=== PATIENT | male | born 1990 | race Caucasian/White ===

== ENCOUNTER 2017-05-20 18:55 | Inpatient (IN) | payer MEDICAID ==
[2017-05-20] MEDS ORDERED: NS 1,000 ML IV ONE ×2 (19:28)
--- NOTE | 2017-05-20 19:28 | EDPHY ---
H & P Stated Complaint: BLOODY DIARRHEA/HX OF [place] AND JUST RETURNED FROM [place] Source: Patient, Family (Mother) Exam Limitations: No limitations - Personal History Current Tetanus/Diphtheria Vaccine: Yes - Medical/Surgical History Hx Asthma: No Hx Chronic Respiratory Disease: No Hx Diabetes: No Hx Cardiac Disease: No Hx Renal Disease: No Hx Cirrhosis: No Hx Alcoholism: No Hx HIV/AIDS: No Hx Splenectomy or Spleen Trauma: No Other PMH: Crohns - Social History Smoking Status: Former smoker Time Seen by Provider: 05/20/17 19:27 HPI/ROS: HPI: This is a 27-year-old male presents with Chief Complaint: BLOODY DIARRHEA/HX OF [place] AND JUST RETURNED FROM [place] Location: GI Quality: bloody Diarrhea Duration: Since May 12 Signs and Symptoms: + fever, + chills, no nausea, no vomiting, no hematemesis, + blood in stool, + abdominal bloating, + diarrhea, no back pain, no urinary symptoms, no testicular/groin pain, no indigestion, no chest pain, no shortness of breath Timing: Sudden, intermittent episodes Severity: Moderate to severe Context: History of Crohn's disease on Humira injection at the end of April , left from [place] on May 12 and return today. He complains that he had 4- 5 bloody stools per day starting on the accompanied by abdominal bloating, dominant cramping and abdominal pain. For the last 2 days, he has only had small "dribbles" of dark stool that is blood tinged. He has been attempting to drink fluids but everything he eats "runs right through him." His last colonoscopy was approximately 1 year ago. He is followed by Gastroenterology and [place], [place]. He denies any urinary symptoms but does endorse low- grade fever, fatigue and chills. Denies perirectal abscess. Modifying Factors: Humira Comment: ROS: see HPI Constitutional: No fever, no chills, no weight loss Eyes: No blurred vision Respiratory: No shortness of breath, no cough Cardiovascular: No chest pain, no palpitations Gastrointestinal: No nausea, no vomiting, + diarrhea, no hematemesis, + blood in stool Genitourinary: No dysuria, no blood in urine Extremities: No myalgias, no edema Neurologic: No weakness, no numbness Skin: No rashes, no petechiae Hematologic: No bruising, no bleeding MEDICAL/SURGICAL/SOCIAL HISTORY: Medical history: Crohn's disease Surgical history: Rectal scope for kinza anal abscess Social history: Employed. CONSTITUTIONAL: Pleasant adult white male who is reddened flushed cheeks appears ill but nontoxic in appearance, awake and alert, no obvious distress HEENT: Atraumatic and normocephalic, PERRL, EOMI. Tympanic membranes clear. Oropharynx clear, no exudate and moist pink mucosa. Airway patent. No lymphadenopathy. No meningismus. Cardiovascular: Normal S1/S2, tachycardia, regular rhythm, without murmur rub or gallop. PULMONARY/CHEST: Symmetrical and nontender. Clear to auscultation bilaterally. Good air movement. No accessory muscle usage. ABDOMEN: Soft, nondistended, mild nonfocal generalized tenderness, no rebound, no guarding, no peritoneal signs, no masses or organomegaly. No CVAT. EXTREMITIES: 2/2 pulses, strength 5/5, no deformities, no clubbing, no cyanosis or edema. NEUROLOGICAL: no focal neuro deficits. GCS 15. SKIN: Warm and dry, no erythema. no rash. Good capillary refill. (Chloe Hanson) Constitutional: Initial Vital Signs Temperature (C) 37.7 C 05/20/17 18:57 Heart Rate 128 H 05/20/17 18:57 Respiratory Rate 20 05/20/17 18:57 Blood Pressure 130/78 H 05/20/17 18:57 O2 Sat (%) 95 05/20/17 18:57 O2 Delivery Mode Room Air Allergies/Adverse Reactions: hydromorphone [From Dilaudid] Allergy (Mild, Verified 05/20/17 20:22) Itching Home Medications: Medication Instructions Recorded Acetaminophen [Tylenol ES 500 mg 500 mg PO Q6 PRN 05/20/17 (*)] Adalimumab [Humira] 40 mg SQ Q14D 05/20/17 Medical Decision Making - Diagnostics Imaging Results: Imaging Impressions Abdomen CT 05/20/17 19:41 Impression: 1. Crohn's colitis involving the transverse, descending, and sigmoid colon, with circumferential wall thickening and pericolonic inflammatory changes. 2. No evidence of abscess, bowel obstruction, or pneumoperitoneum. 3. L5-S1 spondylolytic grade 1 spondylolisthesis resulting in bilateral neural foraminal stenosis. Findings and recommendations given to Chloe Hanson PA-C, at 2045 hours, on May 20, 2017. Final report concurs with initial preliminary interpretation. ED Course/Re-evaluation: The patient was evaluated and managed by the physician's legal executive assistant. My cosignature indicates that I reviewed the chart and I agree with the findings and plan of care as documented. I am the secondary supervising physician. ( Radha Lundberg) Labs, urinalysis, CT abdomen and pelvis scan, IV fluids, stool studies, occult stool, IV medications ordered Vital signs reviewed and show tachycardia upon arrival. Patient given 2 L normal saline, IV morphine 4 mg, and IV Solu-Medrol 125 mg No signs of small-bowel obstruction, perforation, toxic megacolon Called by Radiologist, Dr. Lee Meeks, who advised that CT abdomen and pelvis scan shows no signs of perforation/obstruction/toxic megacolon but does show diffuse inflammatory changes throughout the distal transverse into the descending colon. No abscess. 2044: Reassessed patient; who reports that he is feeling much better at with last abdominal cramping and minimal abdominal pain. 2049: ED decision to consult for admission for Crohn's flare with leukocytosis and increased inflammatory markers. Spoke with hospitalist, Dr. Colbert, (Chloe Hanson) Differential Diagnosis: Abdominal pain including but not limited to Crohn's flare, appendicitis, cholecystitis, gastritis and urinary tract infection. (Chloe Hanson) - Data Points Laboratory Results: Laboratory Results 05/20/17 19:35 05/20/17 19:35 05/20/17 05/20/17 05/20/17 19:35 19:35 19:35 WBC 16.31 10^3/uL H 10^3/uL (3.80-9.50) RBC 4.25 10^6/uL L 10^6/uL (4.40-6.38) Hgb 12.1 g/dL L g/dL (13.7-17.5) Hct 35.5 % L % (40.0-51.0) MCV 83.5 fL fL (81.5-99.8) MCH 28.5 pg pg (27.9-34.1) MCHC 34.1 g/dL g/dL (32.4-36.7) RDW 13.5 % % (11.5-15.2) Plt Count 370 10^3/uL 10^3/uL (150-400) MPV 9.7 fL fL (8.7-11.7) Neut % (Auto) 86.1 % H % (39.3-74.2) Lymph % (Auto) 5.6 % L % (15.0-45.0) Daniels % (Auto) 7.8 % % (4.5-13.0) Eos % (Auto) 0.1 % L % (0.6-7.6) Baso % (Auto) 0.2 % L % (0.3-1.7) Nucleat RBC Rel Count 0.0 % % (0.0-0.2) Absolute Neuts (auto) 14.05 10^3/uL H 10^3/uL (1.70-6.50) Absolute Lymphs (auto) 0.91 10^3/uL L 10^3/uL (1.00-3.00) Absolute Monos (auto) 1.27 10^3/uL H 10^3/uL (0.30-0.80) Absolute Eos (auto) 0.01 10^3/uL L 10^3/uL (0.03-0.40) Absolute Basos (auto) 0.03 10^3/uL 10^3/uL (0.02-0.10) Absolute Nucleated RBC 0.00 10^3/uL 10^3/uL (0-0.01) Immature Gran % 0.2 % % (0.0-1.1) Immature Gran # 0.04 10^3/uL 10^3/uL (0.00-0.10) ESR 62 MM/HR H MM/HR (0-15) VBG Lactic Acid 2.0 mmol/L mmol/L (0.7-2.1) Sodium 137 mEq/L mEq/L (134-144) Potassium 3.8 mEq/L mEq/L (3.5-5.2) Chloride 97 mEq/L mEq/L (97-110) Carbon Dioxide 23 mEq/l mEq/l (22-31) Anion Gap 17 mEq/L H mEq/L (8-16) BUN 7 mg/dL mg/dL (7-23) Creatinine 0.8 mg/dL mg/dL (0.7-1.3) Estimated GFR > 60 Glucose 135 mg/dL H mg/dL (70-100) Calcium 9.5 mg/dL mg/dL (8.5-10.4) Total Bilirubin 0.6 mg/dL mg/dL (0.1-1.4) Conjugated Bilirubin 0.3 mg/dL mg/dL (0.0-0.5) Unconjugated Bilirubin 0.3 mg/dL mg/dL (0.0-1.1) AST 25 IU/L IU/L (17-59) ALT 43 IU/L IU/L (21-72) Alkaline Phosphatase 84 IU/L IU/L (38-126) C-Reactive Protein 241.6 mg/L H mg/L (<10.0) Total Protein 6.6 g/dL g/dL (6.3-8.2) Albumin 3.6 g/dL g/dL (3.5-5.0) Lipase 19 IU/L L IU/L (23-300) Medications Given: Discontinued Medications Sodium Chloride (Ns) 1,000 mls @ 0 mls/hr IV EDNOW ONE; Wide Open PRN Reason: Protocol Stop: 05/20/17 19:29 Last Admin: 05/20/17 19:44 Dose: 1,000 mls Sodium Chloride (Ns) 1,000 mls @ 0 mls/hr IV EDNOW ONE; Wide Open PRN Reason: Protocol Stop: 05/20/17 19:29 Last Admin: 05/20/17 19:44 Dose: 1,000 mls Methylprednisolone Sodium Succinate (Solu-Medrol) 125 mg IVP EDNOW ONE Stop: 05/20/17 19:41 Last Admin: 05/20/17 19:46 Dose: 125 mg Morphine Sulfate (Morphine) 4 mg IVP EDNOW ONE Stop: 05/20/17 19:41 Last Admin: 05/20/17 19:44 Dose: 4 mg Morphine Sulfate (Morphine) 4 mg IVP EDNOW ONE Stop: 05/20/17 21:51 Last Admin: 05/20/17 21:52 Dose: 4 mg Departure - Departure Disposition: [facility] Acute Clinical Impression: Crohn's disease, acute Qualifiers: Digestive disease complication type: unspecified complication Qualified Code(s) : K50.919 - Crohn's disease, unspecified, with unspecified complications Crohn's colitis Qualifiers: Digestive disease complication type: unspecified complication Qualified Code(s) : K50.119 - Crohn's disease of large intestine with unspecified complications Condition: Fair
[2017-05-20] MEDS ORDERED: methylPREDNISolone SOD SUCC 125 MG/2 ML VIAL IVP ONE (19:40)
[2017-05-20 19:50] LABS: PLATELET COUNT 370 10^3/uL (150-400)
[2017-05-20] MEDS ORDERED: IOPAMIDOL (ISOVUE-300) 100 ML BTL ONE (20:25)
[2017-05-20] MEDS ORDERED: PROMETHAZINE HCL 25 MG/ML INJ IVP PRN (22:18)
[2017-05-20] MEDS ORDERED: ONDANSETRON 4 MG/2 ML VIAL IVP PRN (22:18)
[2017-05-20] MEDS ORDERED: ACETAMINOPHEN 325 MG TAB PO PRN (22:18)
[2017-05-20] MEDS ORDERED: NS 1,000 ML IV SCH (22:45)
--- NOTE | 2017-05-20 23:04 | PDGENHP ---
History and Physical - Chief Complaint bloody diarrhea - History of Present Illness Source-patient provides history appears reliable. Case discussed with the accepting provider and EMR reviewed. HPI-this is a pleasant 27-year-old male with past medical history significant for Crohn's disease who presents to the emergency department with complaints of approximately 2 weeks of progressive lower abdominal pain. Patient is on Humira and received his last dose on 05/12/2017. Patient subsequently went on vacation to [place] where he continued to feel worse. He also developed fevers and chills fatigue sweats and worsening abdominal distention. The patient also endorses blood streaked diarrhea. He denies any sick contacts. Patient describes his pain as alternating sharp and cramping type pain in his bilateral lower abdomen abdomen. He has had decreased appetite and poor oral intake and hydration for the last several days. Currently patient reports that he has not had anything solid to eat and sometime in is now just passing mucousy blood. Patient also endorses some nausea and vomiting without hematemesis. He has been feeling progressively weak and occasional lightheadedness. He and his family arrived into the [place] airport this afternoon and immediately patient desired to be brought to the emergency department for evaluation. Patient lives in [place] and followed by GI locally there. His parents live in the [place] area and patient requested the bring him immediately to [facility] after landing from the airport. Patient denies any chest pain shortness of breath presyncope. History Information - Allergies/Home Medication List Allergies/Adverse Reactions: hydromorphone [From Dilaudid] Allergy (Mild, Verified 05/20/17 20:22) Itching Home Medications: Acetaminophen [Tylenol ES 500 mg (*)] 500 mg PO Q6 PRN 05/20/17 [Last Taken 09/01 12:00] Adalimumab [Humira] 40 mg SQ Q14D 05/20/17 [Last Taken 05/12/17] I have personally reviewed and updated: family history, medical history, social history, surgical history - Past Medical History Additional medical history: Crohn's disease, attention deficit hyperactivity disorder, anxiety and depression - Surgical History Additional surgical history: Colonoscopy, ? EGD, perirectal abscess I and D - Family History Additional family history: Negative for IBD or any other autoimmune conditions. Patient reports his mother, father, sister are all healthy - Social History Smoking Status: Former smoker Tobacco Use: Cigarettes Alcohol Use: Rarely Drug Use: Marijuana Additional social history: Patient lives and works in [place]. He quit smoking in 2015 shortly after diagnosis of Crohn's with occasional cigarette. He rarely drinks any alcohol. He uses marijuana on most days. Cor status - full. Review of Systems Review of Systems: ROS: 10pt was reviewed & negative except for what was stated in HPI & below Constitutional: Reports: chills, fever, malaise, recent illness EENMT: Reports: nose congestion (Some rhinorrhea earlier today that is now resolved). Denies: blurred vision, sore throat Cardiac: Reports: no symptoms. Denies: chest pain, edema, lightheadedness, palpitations Respiratory: Reports: no symptoms. Denies: cough, shortness of breath Gastrointestinal: Reports: vomitting, blood streaked stools, diarrhea, nausea, other (See HPI) Genitourinary: Reports: no symptoms. Denies: dysuria, hematuria Muscolosketal: Reports: muscle pain (Diffuse myalgias) Skin: Reports: other (Ingrown hair to the thigh). Denies: rash Neurological: Denies: anxiety, depressed, headache, numbness, tingling Hematologic/Lymphatic: Denies: easy bleeding, easy bruising Physical Exam Physical Exam: Selected Entries 05/20/17 05/20/17 18:57 21:54 Blood Pressure Automatic Automatic Method Heart Rate 128 H 92 Respiratory 20 14 Rate O2 Sat (%) 95 92 Temperature (C) 37.7 C Blood Pressure 130/78 H 117/77 Mean Arterial 95 90 Pressure (MAP) O2 Delivery Room Air Room Air Mode Temperature Oral Source Temp Pulse Resp BP Pulse Ox 36.4 C 94 14 129/73 H 94 05/20/17 22:36 05/20/17 22:36 05/20/17 22:36 05/20/17 22:36 05/20/17 22:36 Constitutional: no apparent distress, chronically ill appearing, uncomfortable, other (NAD. Pleasant young adult male is sitting quietly in bed. Appears fatigued acutely ill but nontoxic.) Eyes: PERRL, anicteric sclera, EOMI, No scleral injection Ears, Nose, Mouth, Throat: dry mucous membranes, other (No nasal discharge), No poor dentition Cardiovascular: no murmur, rub, or gallop (the 90s), pulses symmetric bilaterally, tachycardia, edema (Trace lower extremities bilaterally), other ( Regular rhythm), No systolic murmur Peripheral Pulses: 2+: dorsalis-pedis (R), dorsalis-pedis (L) Respiratory: no respiratory distress, no rales or rhonchi, clear to auscultation Gastrointestinal: normoactive bowel sounds, no palpable masses, tenderness ( Bilateral lower abdomen, distended, increased warmth to touch in the lower abdomen), distension, No guarding, No rebound Genitourinary: no bladder tenderness, No hunt in urethra Skin: warm, other ([place]), No rash Musculoskeletal: full muscle strength, other (Patient sits up independently), No joint tenderness Neurologic: AAOx3, sensation intact bilaterally, other (Grossly nonfocal), No weakness, No facial droop Psychiatric: interacting appropriately, not anxious, not encephalopathic, thought process linear Lab Data & Imaging Review 05/20/17 19:35 05/20/17 19:35 WBC 16.31 10^3/uL (3.80-9.50) H 05/20/17 19:35 RBC 4.25 10^6/uL (4.40-6.38) L 05/20/17 19:35 Hgb 12.1 g/dL (13.7-17.5) L 05/20/17 19:35 Hct 35.5 % (40.0-51.0) L 05/20/17 19:35 MCV 83.5 fL (81.5-99.8) 05/20/17 19:35 MCH 28.5 pg (27.9-34.1) 05/20/17 19:35 MCHC 34.1 g/dL (32.4-36.7) 05/20/17 19:35 RDW 13.5 % (11.5-15.2) 05/20/17 19:35 Plt Count 370 10^3/uL (150-400) 05/20/17 19:35 MPV 9.7 fL (8.7-11.7) 05/20/17 19:35 Neut % (Auto) 86.1 % (39.3-74.2) H 05/20/17 19:35 Lymph % (Auto) 5.6 % (15.0-45.0) L 05/20/17 19:35 [place] % (Auto) 7.8 % (4.5-13.0) 05/20/17 19:35 Eos % (Auto) 0.1 % (0.6-7.6) L 05/20/17 19:35 Baso % (Auto) 0.2 % (0.3-1.7) L 05/20/17 19:35 Nucleat RBC Rel Count 0.0 % (0.0-0.2) 05/20/17 19:35 Absolute Neuts (auto) 14.05 10^3/uL (1.70-6.50) H 05/20/17 19:35 Absolute Lymphs (auto) 0.91 10^3/uL (1.00-3.00) L 05/20/17 19:35 Absolute Monos (auto) 1.27 10^3/uL (0.30-0.80) H 05/20/17 19:35 Absolute Eos (auto) 0.01 10^3/uL (0.03-0.40) L 05/20/17 19:35 Absolute Basos (auto) 0.03 10^3/uL (0.02-0.10) 05/20/17 19:35 Absolute Nucleated RBC 0.00 10^3/uL (0-0.01) 05/20/17 19:35 Immature Gran % 0.2 % (0.0-1.1) 05/20/17 19:35 Immature Gran # 0.04 10^3/uL (0.00-0.10) 05/20/17 19:35 ESR 62 MM/HR (0-15) H 05/20/17 19:35 VBG Lactic Acid 2.0 mmol/L (0.7-2.1) 05/20/17 19:35 Sodium 137 mEq/L (134-144) 05/20/17 19:35 Potassium 3.8 mEq/L (3.5-5.2) 05/20/17 19:35 Chloride 97 mEq/L (97-110) 05/20/17 19:35 Carbon Dioxide 23 mEq/l (22-31) 05/20/17 19:35 Anion Gap 17 mEq/L (8-16) H 05/20/17 19:35 BUN 7 mg/dL (7-23) 05/20/17 19:35 Creatinine 0.8 mg/dL (0.7-1.3) 05/20/17 19:35 Estimated GFR > 60 05/20/17 19:35 Glucose 135 mg/dL (70-100) H 05/20/17 19:35 Calcium 9.5 mg/dL (8.5-10.4) 05/20/17 19:35 Total Bilirubin 0.6 mg/dL (0.1-1.4) 05/20/17 19:35 Conjugated Bilirubin 0.3 mg/dL (0.0-0.5) 05/20/17 19:35 Unconjugated Bilirubin 0.3 mg/dL (0.0-1.1) 05/20/17 19:35 AST 25 IU/L (17-59) 05/20/17 19:35 ALT 43 IU/L (21-72) 05/20/17 19:35 Alkaline Phosphatase 84 IU/L (38-126) 05/20/17 19:35 C-Reactive Protein 241.6 mg/L (<10.0) H 05/20/17 19:35 Total Protein 6.6 g/dL (6.3-8.2) 05/20/17 19:35 Albumin 3.6 g/dL (3.5-5.0) 05/20/17 19:35 Lipase 19 IU/L (23-300) L 05/20/17 19:35 Imaging Review: CT Scan of the Abdomen and Pelvis (With Contrast) at 2030 hours History: Crohn's disease, abdominal pain, bloody diarrhea, leukocytosis. Technique: Axial computed tomographic images of the abdomen and pelvis were obtained with the uneventful intravenous administration of 90 mL Isovue-300 contrast. No oral contrast. Dose reduction techniques were utilized. Comparison: CT April 2015. CT Abdomen Findings: Lung bases: Normal. Liver: Normal. Biliary System: No biliary ductal dilation. Spleen: Normal. Pancreas: Normal. Adrenals: Normal. Kidneys: No obstruction or solid masses. Abdominal Aorta: No aneurysm. Diffuse circumferential wall thickening, with pericolonic inflammatory changes involving the majority of the transverse colon, descending colon, and sigmoid colon, which has progressed and appears worse since the previous study consistent with acute Crohn's colitis. No drainable abscess or pneumoperitoneum. No definite bowel obstruction. No significant adenopathy. Oral contrast in the right colon only. CT Pelvis Findings: Diffuse circumferential wall thickening of the descending and sigmoid colon also noted consistent with Crohn's colitis. No drainable abscess. Bilateral L5 spondylolysis and grade 1 spondylolisthesis resulting in moderate bilateral neural foraminal stenosis, without central canal stenosis. Impression: 1. Crohn's colitis involving the transverse, descending, and sigmoid colon, with circumferential wall thickening and pericolonic inflammatory changes. 2. No evidence of abscess, bowel obstruction, or pneumoperitoneum. 3. L5-S1 spondylolytic grade 1 spondylolisthesis resulting in bilateral neural foraminal stenosis. Findings and recommendations given to Chloe Hanson PA-C, at 2045 hours, on May 20, 2017. Visualized and Interpreted imaging results: Yes Assessment & Plan Assessment: 27-year-old male with Crohn's disease on immunosuppressive therapy presents with worsening abdominal pain and bloody diarrhea #Crohn's colitis (Acute) - the patient is currently undergoing treatment with Humira is immunosuppressed. He did received 125 mg dose of Solu-Medrol. Will add on Flagyl and ciprofloxacin given increased colitis and surrounding stranding. Patient meeting SIRS criteria but his qsofa score is 0. He will receive IV fluids, continued steroids and antibiotics. GI consultation in the morning for any further recommendations. Additionally given patient was recently in [place] have added on stool studies to evaluate for any virulent infectious agents. #Abdominal pain - p.r.n. morphine, Ativan, [place] #SIRS - patient with leukocytosis, tachycardia. His Q sulfa score however is 0 however. Lactate was 2.0 will repeat to ensure it has come down after fluids. #anemia - unclear if this is acute versus chronic. secondary to Crohn's GI losses. Will continue to monitor. Vitals are stable at this time FEN - IVF. electrolyte replacement if needed. clear diet for now. PPX - SCDs. holding anticoagulation in setting of GI bleeding. COR - FULL. Dispo - the patient admitted to inpatient status given severity of disease and patient's history of immunosuppression. Anticipate greater than 2 midnight stay for continued IV antibiotics and monitoring.
[2017-05-20] MEDS: CIPROFLOXACIN 400 MG/DEXTROSE 200 ML IV SCH (23:36)
[2017-05-20] MEDS: HYDROCODONE/APAP 5/325 TAB PO PRN (23:41)
[2017-05-21] MEDS: HYDROCODONE/APAP 5/325 TAB PO PRN ×2 (05:06→09:39)
[2017-05-21 05:53] LABS: PLATELET COUNT 324 10^3/uL (150-400)
[2017-05-21] MEDS: LORazepam 2 MG/ML INJ IVP PRN ×2 (08:30→22:20)
--- NOTE | 2017-05-21 09:07 | HOSPPROG ---
Hospitalist Progress Note Assessment/Plan: #SIRs: resolved #Crohn's flare -involving transcending/descending/sigmoid colon -GI PCR negative, O&P pending with recent [place] trip -resume IV steroids, cont abx for now -consult GI #Tachycardia: resolved with IVFs #Normocytic anemia: unclear baseline. #Leukocytosis: improved with IVFs, cont abx #Diet: clear #DVT ppx: low-risk #Disp: warrants inpt admission with Crohn's flare, requires IV steroids Subjective: still having bloody, mucus stools. Crampy lower abd pain Objective: Vital Signs Temp Pulse Resp BP Pulse Ox 36.5 C 67 17 112/64 94 05/21/17 07:25 05/21/17 07:25 05/21/17 07:25 05/21/17 07:25 05/21/17 07:25 Microbiology 05/21/17 01:00 Gastrointestinal Tract Panel (PCR) - Final Stool No Organism Detected 05/21/17 01:00 Fecal Leukocyte Stain - Final Stool Laboratory Results 05/21/17 05:21 05/21/17 05:21 05/20/17 05/21/17 05/22/17 05:59 05:59 05:59 Intake Total 2500 900 Output Total 350 Balance 2150 900 - Physical Exam Constitutional: no apparent distress Eyes: PERRL Ears, Nose, Mouth, Throat: moist mucous membranes, hearing normal Cardiovascular: regular rate and rhythym, no murmur, rub, or gallop Respiratory: no respiratory distress, no rales or rhonchi Gastrointestinal: normoactive bowel sounds, other (mild distension. mild lower abd TTP, no rebound/guard) Genitourinary: no bladder fullness Skin: warm Musculoskeletal: full muscle strength Neurologic: AAOx3 Psychiatric: interacting appropriately Lymph, Heme, Immunologic: no cervical LAD ICD10 Worksheet Patient Problems: Problems Problem Status Onset Crohn's colitis Acute Crohn's disease, acute Acute Colitis Acute Perirectal abscess Acute
[2017-05-21] MEDS: CIPROFLOXACIN 400 MG/DEXTROSE 200 ML IV SCH ×2 (09:35→20:52)
[2017-05-21] MEDS ORDERED: ACETAMINOPHEN 500 MG TAB PO PRN (10:42)
[2017-05-21] MEDS ORDERED: diphenhydrAMINE 25 MG CAP PO PRN (10:44)
--- NOTE | 2017-05-21 11:30 | PDMN ---
Medical Necessity Medical necessity: est los>2mn for acute Crohn's colitis, abd pain, SIRS, and anemia; admit for IVF, IV steroids, IV abx, and GI consult; comorbid immunosuppression; per order and H&P 05/20/17
[2017-05-21] MEDS: oxyCODONE IR 5 MG TAB PO PRN ×6 (12:00→22:19)
[2017-05-21] MEDS: methylPREDNISolone SOD SUCC 40 MG/ML VIAL IVP SCH ×3 (12:00→20:52)
[2017-05-21] MEDS: ONDANSETRON DISINTEGRATING 4 MG TAB PO PRN (15:15)
--- NOTE | 2017-05-21 16:15 | ASMTCMCOM ---
CM Note CM Note Notes: Pt admitted with Crohn's flare. Anticipate pt will have no DC needs when medically cleared. Date Signed: 05/21/2017 04:15 PM Electronically Signed By:Ella Brown LCSW
--- NOTE | 2017-05-21 20:34 | GCON ---
[f rep st] CONSULTATION DATE OF CONSULTATION: 05/21/2017 REFERRING PHYSICIAN: Sarah Avila MD REASON FOR CONSULTATION: Exacerbation of Crohn disease. CHIEF COMPLAINT: Abdominal pain/diarrhea/Crohns disease HISTORY OF PRESENT ILLNESS: Audi is a 27-year-old male with a history of colonic Crohn disease who presents to [facility] with complaints of left lower quadrant abdominal pain as well as diarrhea. Audi was diagnosed with Crohn disease approximately 2 years ago and was initially placed on steroids and Remicade. He had great relief of his symptoms. On Remicade he had good symptoms control. Due to work issues and the inconvenience of getting infusion he was switched from Remicade to Humira. He states he was doing well until the middle of March and had a slight flare at that time. These symptoms quickly resolved but in the middle of April of 2017, he started to experience increasing abdominal pain and diarrhea. Audi states he was going to the bathroom approximately 8-12 times a day with nocturnal bowel movements. He thinks that there is blood in all his bowel movements. He is also complaining of a sharp, crampy pain mainly in his LLQ. The pain has become progressively more severe He also had complaints of chills and sweats as well as worsening fatigue. He also had some nausea with several episodes of vomiting in the last week. He gets his GI care in [place], [place]. I am being asked by Dr. Avila to evaluate the patient in consultation regarding his Crohn disease with increasing diarrhea and abdominal pain. PAST MEDICAL HISTORY: 1. Crohn disease of the colon. 2. Attention-deficit disorder. 3. Anxiety. 4. Depression. PAST SURGICAL HISTORY: Colonoscopy approximately a year and a half ago. MEDICATIONS: Humira, acetaminophen. ALLERGIES: Hydromorphone. FAMILY HISTORY: No history of inflammatory bowel disease. SOCIAL HISTORY: Former smoker. Marijuana. Social alcohol. REVIEW OF SYSTEMS: A 12-point comprehensive review was asked. Pertinent positives and negatives per HPI. PHYSICAL EXAMINATION: VITALS: Blood pressure 120/67, pulse 76, respirations 18 , temp 37.6. GENERAL: Awake, alert, oriented x3 in no distress. HEENT: Anicteric sclerae. Moist mucosa. NECK: No JVD. CARDIOVASCULAR: Regular rate and rhythm. Positive S1, S2. No murmurs or gallops appreciated. LUNGS: Clear to auscultation bilaterally. No wheezes, rales or rhonchi. ABDOMEN: Soft, tender in the left lower quadrant. Positive bowel sounds. No guarding. No rebound. EXTREMITIES: No clubbing, cyanosis or edema. NEUROLOGIC: 2 through 12 grossly intact. PSYCH: Normal affect. SKIN: No rash. MUSCULOSKELETAL: No joint effusions. IMAGING: CT scan of the abdomen and pelvis performed on 05/20/2017, shows Crohn colitis involving transverse, ascending, descending and sigmoid colon. LABORATORY DATA: Stool studies: Stool occult negative. Stool ova and parasites pending. Sodium 140, potassium 4.4, chloride 101, bicarb 26, BUN 6, creatinine 0.7, glucose 140, AST 18, ALT 42, lipase 19. ESR 62. WBC is 10.9, hemoglobin 11.4, platelets 324. ASSESSMENT AND PLAN: 1. Crohns colitis- with increasing diarrhea and abdominal pain. High ESR on blood work. Suspect exacerbation of disease. At this time, will also recommend to check stool studies for Clostridium difficile. The patient has had a decent relief with intravenous steroids. Will need to continue for 48-72 hours. If he doesnt improve, would consider flexible sigmoidoscopy/colonoscopy with biopsies (r/o CMV, etc). Would continue low-fiber diet. Thank you very much for this consultation. /[id number]/MODL MTDNatalia
[2017-05-22] MEDS: oxyCODONE IR 5 MG TAB PO PRN ×5 (02:44→22:06)
[2017-05-22] MEDS: methylPREDNISolone SOD SUCC 40 MG/ML VIAL IVP SCH ×3 (05:14→22:05)
[2017-05-22] MEDS: CIPROFLOXACIN 400 MG/DEXTROSE 200 ML IV SCH (08:34)
--- NOTE | 2017-05-22 08:49 | HOSPPROG ---
Hospitalist Progress Note Assessment/Plan: #SIRs: resolved # Acute Crohn's flare -involving transcending/descending/sigmoid colon -GI PCR negative, O&P negative -resume IV steroids, cont abx for now -appreciate GI consult; primary GI doc in [place] -increase opioids frequency #Tachycardia: resolved with IVFs #Normocytic anemia: H/H stable, unclear baseline #Leukocytosis: improved with IVFs, cont abx #Diet: low-fiber #DVT ppx: low-risk #Disp: warrants inpt admission with Crohn's flare, requires IV steroids Subjective: pain mildly improved, less BMs Objective: Vital Signs Temp Pulse Resp BP Pulse Ox 36.7 C 67 16 105/58 L 94 05/22/17 07:31 05/22/17 07:31 05/22/17 07:31 05/22/17 07:31 05/22/17 07:31 Microbiology 05/21/17 01:00 Gastrointestinal Tract Panel (PCR) - Final Stool No Organism Detected 05/21/17 01:00 Fecal Leukocyte Stain - Final Stool Laboratory Results 05/22/17 04:11 05/21/17 05:21 05/21/17 05/22/17 05/23/17 05:59 05:59 05:59 Intake Total 2500 4364 Output Total 350 Balance 2150 4364 - Physical Exam Constitutional: no apparent distress Eyes: PERRL Ears, Nose, Mouth, Throat: moist mucous membranes Cardiovascular: regular rate and rhythym, no murmur, rub, or gallop Gastrointestinal: normoactive bowel sounds, tenderness (mild lower abd quadrant TTP), No guarding, No rebound Genitourinary: no bladder fullness Skin: warm Musculoskeletal: full muscle strength Neurologic: AAOx3 ICD10 Worksheet Patient Problems: Problems Problem Status Onset Crohn's colitis Acute Crohn's disease, acute Acute Colitis Acute Perirectal abscess Acute
--- NOTE | 2017-05-22 15:53 | SOAPPROG ---
SOAP Progress Note Assessment/Plan: Assessment: 1. Crohn's colitis flare; improved. 2. Diarrhea improved. No infectious etiology found. Plan: Continue IV steroids until having 2-3 formed BM daily and then change to Prednisone. Miguel Angel Townsend MD 05/22/17 15:50 Subjective: CC: Crohn's colitis with flare. Interval HPI: Patient states that he feels much better today with decreased albeit liquid stools without blood. Objective: Vital Signs Temp Pulse Resp BP Pulse Ox 36.8 C 76 16 103/56 L 94 05/22/17 15:28 05/22/17 15:28 05/22/17 15:28 05/22/17 15:28 05/22/17 15:28 Laboratory Results 05/22/17 04:11 05/21/17 05:21 05/21/17 05/22/17 05/23/17 05:59 05:59 05:59 Intake Total 2500 4364 Output Total 350 Balance 2150 4364 Physical Exam - Physical Exam General Appearance: WD/WN, alert, no apparent distress Respiratory: lungs clear, normal breath sounds Cardiac/Chest: normal peripheral pulses, regular rate, rhythm Abdomen: normal bowel sounds, non-tender, soft Skin: normal color, warm/dry Neuro/Psych: alert, normal mood/affect, oriented x 3 ICD10 Worksheet Patient Problems: Problems Problem Status Onset Crohn's colitis Acute Crohn's disease, acute Acute Colitis Acute Perirectal abscess Acute
[2017-05-22] MEDS: LORazepam 2 MG/ML INJ IVP PRN (22:10)
[2017-05-23] MEDS: oxyCODONE IR 5 MG TAB PO PRN ×5 (02:48→20:11)
[2017-05-23] MEDS: methylPREDNISolone SOD SUCC 40 MG/ML VIAL IVP SCH ×3 (06:23→21:39)
--- NOTE | 2017-05-23 09:38 | SOAPPROG ---
SOAP Progress Note Assessment/Plan: Assessment: 1. Crohn's colitis flare; diarrhea improved albeit abdominal cramping this am. 2. Leukocytosis likely secondary to IV steroids. Plan: 1. Continue IV steroids. 2. Pain control. Miguel Angel Townsend MD 05/23/17 09:39 Subjective: CC: Crohn's colitis with flare. Interval HPI: Patient slept well last night. One loose BM last night and one semi-formed BM this am without blood. C/O severe abdominal cramping with BM this am requiring pain meds. Objective: Vital Signs Temp Pulse Resp BP Pulse Ox 36.6 C 57 L 18 121/68 H 91 L 05/23/17 08:43 05/23/17 08:43 05/23/17 08:43 05/23/17 08:43 05/23/17 08:43 Laboratory Results 05/22/17 04:11 05/21/17 05:21 05/22/17 05/23/17 05/24/17 05:59 05:59 05:59 Intake Total 4364 600 Balance 4364 600 Physical Exam - Physical Exam General Appearance: WD/WN, alert, mild distress Respiratory: lungs clear, normal breath sounds Cardiac/Chest: normal peripheral pulses, regular rate, rhythm Abdomen: normal bowel sounds, guarding (difffusely tender.) Skin: normal color, warm/dry Neuro/Psych: alert, normal mood/affect, oriented x 3 ICD10 Worksheet Patient Problems: Problems Problem Status Onset Crohn's colitis Acute Crohn's disease, acute Acute Colitis Acute Perirectal abscess Acute
--- NOTE | 2017-05-23 13:47 | HOSPPROG ---
Hospitalist Progress Note Assessment/Plan: #SIRs: resolved # Acute Crohn's flare: cont IV steroids, will change to Pred 40mg with formed stools. No infectious etiology identified. -GI PCR negative, O&P negative -resume IV steroids, cont abx for now -appreciate GI consult; primary GI doc in [place] -increase opioids frequency #Tachycardia: resolved with IVFs #Normocytic anemia: H/H stable, unclear baseline #Leukocytosis: due to steroids. Afebrile #Diet: low-fiber #DVT ppx: low-risk #Disp: warrants inpt admission with Crohn's flare, requires IV steroids Subjective: pain got out of control last night. Stools starting to be formed Objective: Vital Signs Temp Pulse Resp BP Pulse Ox 36.6 C 57 L 18 121/68 H 91 L 05/23/17 08:43 05/23/17 08:43 05/23/17 08:43 05/23/17 08:43 05/23/17 08:43 Laboratory Results 05/22/17 04:11 05/21/17 05:21 05/22/17 05/23/17 05/24/17 05:59 05:59 05:59 Intake Total 4364 600 Balance 4364 600 - Physical Exam Constitutional: no apparent distress Eyes: PERRL Ears, Nose, Mouth, Throat: moist mucous membranes Cardiovascular: regular rate and rhythym Respiratory: no respiratory distress, no rales or rhonchi Gastrointestinal: normoactive bowel sounds, tenderness (mild RLQ TTP, no rebound /guarding), No distension Genitourinary: No hunt in urethra Skin: warm Musculoskeletal: full muscle strength Neurologic: AAOx3, CN II-XII Intact ICD10 Worksheet Patient Problems: Problems Problem Status Onset Crohn's colitis Acute Crohn's disease, acute Acute Colitis Acute Perirectal abscess Acute
[2017-05-23] MEDS: LORazepam 2 MG/ML INJ IVP PRN (22:25)
[2017-05-24] MEDS: oxyCODONE IR 5 MG TAB PO PRN ×2 (03:54→07:27)
[2017-05-24 05:25] LABS: PLATELET COUNT 404 10^3/uL (150-400)
[2017-05-24] MEDS: methylPREDNISolone SOD SUCC 40 MG/ML VIAL IVP SCH (06:10)
[2017-05-24] MEDS: ONDANSETRON DISINTEGRATING 4 MG TAB PO PRN (07:33)
[2017-05-24 11:32] VITALS: BP 116/74; PULSE 65; RESP 16; TEMP 98.2; O2SAT 91
--- NOTE | 2017-05-24 13:47 | GDS ---
[f rep st] DISCHARGE SUMMARY DISCHARGE DIAGNOSES: Systemic inflammatory response syndrome, acute Crohn's flare, acute abdominal p ain, tachycardia, normocytic anemia, leukocytosis. HISTORY OF PRESENT ILLNESS: A pleasant 27-year-old male with a history of Crohn disease, followed by drainage engineer, Dr. Etienne, in [place], presenting with 2 weeks of progressive lower abdominal pain. He received his last dose of Humira on 05/12/2017 and then subsequently went on vacation in [facility]. There, he continued to feel worse, developed fevers and chills and worsening abdominal disten tion. He had blood-streaked diarrhea. No ill contacts. Pain is alternating between sharp and cramp ing in bilateral lower abdominal quadrants. He has had decreased appetite and oral intake over the l ast several days. HOSPITAL COURSE: 1. Acute Crohn's flare, followed by Dr. Etienne out of [place]. His symptoms improved with IV ster oids. There was no infectious etiology found. Will transition to prednisone 40 and then taper down per his primary drainage engineer. Consider outpatient endoscopy. 2. SIRS, was initially tachycardic with a white count likely secondary to dehydration. Again, negat can GI, PCR. Was initially started on antibiotics as these were discontinued. 3. Leukocytosis: Secondary to steroids. 4. Tachycardia, again, dehydration, pain. This resolved. DISPOSITION: Patient is stable for discharge home. DIET: Low-fiber diet, advance slowly. MEDICATIONS: New medications: 1. Prednisone. 2. Oxycodone 15 tabs. FOLLOWUP: Dr. Etienne, Gastroenterology. PHYSICAL EXAM: VITAL SIGNS: Today, temperature 36.8, blood pressure 116/74, heart rate 60, respirat ions 16, 91% on room air. GENERAL: Well appearing, smiling. HEENT: PERRLA. EOMI. Oropharynx aimee ar. CV: Regular rate and rhythm. No murmurs, gallops, or rubs. LUNGS: Clear to auscultation bila terally. ABDOMEN: Minimal tenderness, lower abdominal quadrants. No rebound or guarding. Positive bowel sounds. : No Alexander. MUSCULOSKELETAL: 5/5 upper and lower extremity strength. NEURO: 2 t hrough 12 intact. PSYCH: Alert and oriented x3. /[id number]/MODL
--- NOTE | 2017-05-24 14:05 | ASDISCHSUM ---
Discharge Information Plan Status:Home with No Needs Medically Cleared to Leave: Discharge Date:05/24/2017 01:08 PM CM D/C Disposition:Home, Routine, Self-Care ADT D/C Disposition:Home, Routine, Self-Care Projected Discharge Date:05/24/2017 01:08 PM Transportation at D/C: Discharge Delay Reason: Follow-Up Date:05/24/2017 01:08 PM Discharge Slot: Final Diagnosis: Placement Information Patient Contact Information Contact Name:DANIELLE Relationship:Father Address:[address] [facility] Work Phone: City:[facility] Phone: [facility]/Zip Code:[place] [address] Email: Financial Information Financial Class: Primary Plan Desc:[employer] [place] Primary Plan Number:[id number] Secondary Plan Desc: Secondary Plan Number: Assessment Information [facility] CM Progress Note CM Note CM Note Notes: Pt admitted with Crohn's flare. Anticipate pt will have no DC needs when medically cleared. Date Signed: 05/21/2017 04:15 PM Electronically Signed By:Ella Brown LCSW Intervention Information
[2017-05-26] MEDS ORDERED: Adalimumab [Humira Pen] 40 MG SQ SCH (09:00)
== END 2017-05-24 13:08 | disposition home or self-care (01) | DRG 387 ==
LOC: F1N 22:09
PROVIDERS: ADMIT Internal Medicine; ATTEND Internal Medicine
DX: K50.10 Crohn's disease of large intestine without complications (principal); D64.9 Anemia, unspecified; D72.829 Elevated white blood cell count, unspecified; R00.0 Tachycardia, unspecified; E86.0 Dehydration; F12.90 Cannabis use, unspecified, uncomplicated; M43.17 Spondylolisthesis, lumbosacral region; F32.9 Major depressive disorder, single episode, unspecified; F41.9 Anxiety disorder, unspecified; F90.9 Attention-deficit hyperactivity disorder, unspecified type; Z87.891 Personal history of nicotine dependence
CPT/HCPCS: 96374; J0744; J2060; J2920; J2930; Q9967